=== PATIENT | female | born 1995 | race Two or more races ===

== ENCOUNTER 2018-01-12 19:46 | Emergency (ER) | payer OTHER ==
[2018-01-12 20:12] VITALS: BP 131/89
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
== END 2018-01-12 20:40 | disposition home or self-care (01) ==
LOC: ER 19:46
DX: S01.511A Laceration without foreign body of lip, initial encounter (principal); Y04.2XXA Assault by strike against or bumped into by another person, initial encounter
CPT/HCPCS: 99283

== ENCOUNTER 2018-03-19 13:23 | Emergency (ER) | payer OTHER ==
--- NOTE | 2018-03-19 13:38 | ER Document Report ---
ED Medical Screen (RME) - General Chief Complaint: Nausea/Vomiting Stated Complaint: NAUSEA,DIZZINESS Time Seen by Provider: 03/19/18 13:36 Mode of Arrival: Ambulatory Information source: Patient Notes: This is a 22-year-old female with a history of vertigo (on meclizine), presents to the emergency room with nausea without vomiting, dizziness, abdominal cramping in the setting of just starting her period yesterday. Patient is sexually active and uses no control. In triage, lungs are clear, heart regular and abdomen is soft. TRAVEL OUTSIDE OF THE [place] IN LAST 30 DAYS: No - HPI Onset: Last week Onset/Duration: Gradual Quality of pain: No pain Severity: None Pain Level: Denies Associated Symptoms: None, Nausea. denies: Chest pain, Shortness of breath, Vomiting Exacerbated by: Denies Relieved by: Denies Similar symptoms previously: No Recently seen / treated by doctor: No - Related Data Smoking: Non-smoker Frequency of alcohol use: None Drug Abuse: None Allergies/Adverse Reactions: Penicillins Allergy (Verified 03/19/18 13:24) Past Medical History - General Information source: Patient - Social History Cigarette use (# per day): No Chew tobacco use (# tins/day): No Frequency of alcohol use: None Drug Abuse: None Lives with: Family Family history: None - Past Medical History Cardiac Medical History: Reports: None Pulmonary Medical History: Reports: None EENT Medical History: Reports: None Neurological Medical History: Reports: Other - Vertigo Endocrine Medical History: Reports: None Renal/ Medical History: Reports: None. Denies: Hx Peritoneal Dialysis Malignancy Medical History: Reports: None GI Medical History: Reports: None Musculoskeltal Medical History: Reports None Skin Medical History: Reports None Psychiatric Medical History: Reports: None Traumatic Medical History: Reports: None Infectious Medical History: Reports: None Surgical Hx: Negative Review of Systems - Review of Systems Constitutional: denies: Chills, Fever EENT: No symptoms reported Cardiovascular: No symptoms reported Respiratory: No symptoms reported Gastrointestinal: See HPI, Nausea. denies: Diarrhea, Vomiting Genitourinary: No symptoms reported Female Genitourinary: No symptoms reported Musculoskeletal: No symptoms reported Skin: No symptoms reported Hematologic/Lymphatic: No symptoms reported Neurological/Psychological: See HPI Physical Exam - Vital signs Vitals: Temp Pulse Resp BP Pulse Ox 99.1 F 90 16 137/78 H 98 03/19/18 13:28 03/19/18 13:28 03/19/18 13:28 03/19/18 13:28 03/19/18 13:28 Notes: Physical exam: GENERAL: A 22-year-old female, alert and oriented 3, no acute distress. Patient's vital signs are stable. HEAD: Atraumatic, normocephalic. EYES: Pupils equal round and reactive to light, extraocular movements intact, sclera anicteric, conjunctiva are normal. ENT: TMs normal, nares patent, oropharynx clear without exudates. Moist mucous membranes. NECK: Normal range of motion, supple without obvious mass or JVD. LUNGS: Breath sounds clear to auscultation bilaterally and equal. No wheezes rales or rhonchi. HEART: Regular rate and rhythm without murmurs, rubs or gallops. ABDOMEN: Soft, normoactive bowel sounds. No tenderness to palpation. No guarding, no rebound. No masses appreciated. EXTREMITIES: Normal range of motion, no pitting or edema. No clubbing or cyanosis. NEUROLOGICAL: Cranial nerves II through XII grossly intact. Normal speech, moving all extremities. PSYCH: Normal mood, normal affect. SKIN: Warm, Dry, normal turgor, no rashes or lesions noted. Course - Vital Signs Vital signs: Temp Pulse Resp BP Pulse Ox 98.1 F 91 18 154/85 H 95 03/19/18 15:46 03/19/18 15:46 03/19/18 15:46 03/19/18 15:46 03/19/18 15:46 - Laboratory Result Diagrams: 03/19/18 13:49 03/19/18 13:49 Laboratory results interpreted by me: 03/19/18 03/19/18 13:49 13:49 MCV 79 L MCH 26.9 L RDW 14.4 H Sodium 147.0 H Chloride 109 H BUN 6 L Doctor's Discharge - Discharge Clinical Impression: Nausea/dizziness Condition: Stable Disposition: HOME, SELF-CARE Instructions: Dizziness ([facility]), Nausea or Vomiting, Nonspecific ([facility]) Additional Instructions: As we discussed, your labs look very good today. The electrolytes, kidney function and sugar were all normal. You were checked for anemia and you do not have any anemia and your blood counts were otherwise very good. The serum test was negative. I would like you to take Zofran for nausea: 1-2 tabs every 6 hours as needed. I will prescribe Phenergan if you need anything after the Zofran. I would like you to follow-up with a primary care doctor. Return to the emergency room for worsening dizziness, concerns or getting worse , abdominal pain. I left the number for some internal medicine physicians that are affiliated with this hospital. Dr. Rani Donohue [facility] [address], [place] [address] [phone] Dr Waller Address: [address] [place] [address] , [place] [address] Dr Miller Address: [address] [place] [address] , [place] [address] Prescriptions: Promethazine HCl [Phenergan 25 mg Tablet] 25 mg PO Q6H PRN #15 tablet PRN Reason:
[2018-03-19 14:07] LABS: ABSOLUTE EOSINOPHILS # (AUTO) 0.1 10^3/uL (0.0-0.6); ABSOLUTE LYMPHOCYTES (AUTO) 3.4 10^3/uL (0.5-4.7); ABSOLUTE MONOCYTES (AUTO) 0.4 10^3/uL (0.1-1.4); ABSOLUTE NEUT (AUTO) 4.3 10^3/uL (1.7-8.2); BASOPHILS % (AUTO) 0.4 % (0-2); EOSINOPHILS % (AUTO) 0.8 % (0-6); HEMATOCRIT 41.3 % (36.0-47.0); LYMPHOCYTES % (AUTO) 41.7 % (13-45); MEAN CORPUSCULAR HEMOGLOBIN 26.9 pg (27.0-33.4); MEAN CORPUSCULAR VOLUME 79 fl (80-97); MONOCYTES % (AUTO) 4.9 % (3-13); PLATELET COUNT 360 10^3/uL (150-450); RED BLOOD COUNT 5.23 10^6/uL (3.72-5.28); RED CELL DISTRIBUTION WIDTH 14.4 % (11.5-14.0); SEGMENTED NEUTROPHILS % (AUTO) 52.2 % (42-78); TOTAL CELLS COUNTED % (AUTO) 100 %; WHITE BLOOD COUNT 8.3 10^3/uL (4.0-10.5)
[2018-03-19 14:36] LABS: ALANINE AMINOTRANSFERASE 32 U/L (9-52); ALBUMIN 4.3 g/dL (3.5-5.0); ALKALINE PHOSPHATASE 64 U/L (38-126); ANION GAP 13 (5-19); ASPARTATE AMINO TRANSFERASE 24 U/L (14-36); BILIRUBIN,DIRECT 0.3 mg/dL (0.0-0.4); BILIRUBIN,TOTAL 0.3 mg/dL (0.2-1.3); BLOOD UREA NITROGEN 6 mg/dL (7-20); CALCIUM 9.9 mg/dL (8.4-10.2); CARBON DIOXIDE 25 mmol/L (22-30); CHLORIDE 109 mmol/L (98-107); GLUCOSE 87 mg/dL (75-110); POTASSIUM 3.8 mmol/L (3.6-5.0); TOTAL PROTEIN 7.9 g/dL (6.3-8.2)
[2018-03-19 15:47] VITALS: BP 154/85
[2018-03-19] MEDS ORDERED: ONDANSETRON ODT 4 MG TAB (6 TAB/ER DISP) PO PRN (15:48)
== END 2018-03-19 15:47 | disposition home or self-care (01) ==
LOC: ER 13:23
DX: R11.0 Nausea (principal); R10.9 Unspecified abdominal pain; R42 Dizziness and giddiness; Z79.899 Other long term (current) drug therapy; Z88.0 Allergy status to penicillin
CPT/HCPCS: 36415; 80053; 84702; 85025; 99284